=== PATIENT | female | born 1970 | race Caucasian/White ===

== ENCOUNTER 2022-11-27 04:12 | Emergency (ER) | payer MEDICAID, OTHER ==
[2022-11-27] MEDS ORDERED: KETOROLAC 15 MG/ML VIAL IVP STA (04:30)
[2022-11-27] MEDS ORDERED: SODIUM CHLORIDE 0.9% 1,000 ML IV STA (04:30)
[2022-11-27] MEDS ORDERED: ONDANSETRON 4 MG/2 ML VIAL IVP STA (04:30)
[2022-11-27 04:36] LABS: BILIRUBIN,URINE NEGATIVE (NEGATIVE); CLARITY,URINE CLEAR (CLEAR); GLUCOSE, URINE (UA) NEGATIVE (NEGATIVE); KETONES,URINE (UA) TRACE mg/dL (NEGATIVE); LEUKOCYTE ESTERASE, URINE NEGATIVE (NEGATIVE); NITRITE,URINE NEGATIVE (NEGATIVE); OCCULT BLOOD,URINE LARGE (NEGATIVE); PROTEIN,URINE 30 mg/dL (NEGATIVE); UROBILINOGEN,URINE 0.2 (NORMAL) E.U./dL (NORMAL)
[2022-11-27 04:42] LABS: BASOPHILS % (AUTO) 0.4 %; EOSINOPHILS # (AUTO) 0.1 10^3/uL (0.0-0.7); EOSINOPHILS % (AUTO) 0.4 %; HCT - HEMATOCRIT 48.3 % (37.0-47.0); HGB - HEMOGLOBIN 16.3 g/dL (12.0-16.0); LYMPHOCYTES # (AUTO) 1.3 10^3/uL (1.5-3.5); LYMPHOCYTES % (AUTO) 11.5 %; MEAN CORPUSCULAR HEMOGLOBIN 29.7 pg (27.0-31.0); MEAN CORPUSCULAR HGB CONC 33.7 g/dL (32.0-36.0); MEAN CORPUSCULAR VOLUME 88.1 fL (81.0-99.0); MEAN PLATELET VOLUME 8.5 fL (7.9-10.8); MONOCYTES # (AUTO) 0.4 10^3/uL (0.0-1.0); MONOCYTES % (AUTO) 3.6 %; NEUTROPHILS # (AUTO) 9.5 10^3/uL (1.5-6.6); NEUTROPHILS % (AUTO) 83.8 %; PLT - PLATELET COUNT 290 10^3/uL (130-450); RED BLOOD COUNT 5.48 10^6/uL (4.20-5.40); RED CELL DISTRIBUTION WIDTH 13.1 % (12.0-15.0); WHITE BLOOD COUNT 11.3 x10^3/uL (4.8-10.8)
[2022-11-27 04:44] LABS: BACTERIA,URINE Rare /HPF (None Seen); MUCUS,URINE Few Strands; RBC,URINE TNTC /HPF (0-5); SQUAMOUS EPITHELIAL CELL,UR FEW Squamous (<= Few); WBC,URINE 0-3 /HPF (0-5)
[2022-11-27 04:55] LABS: ALBUMIN 4.1 g/dL (3.2-5.5); ALBUMIN/GLOBULIN RATIO 1.1 (1.0-2.2); BILIRUBIN,TOTAL 0.5 mg/dL (0.2-1.0); CALCIUM 9.6 mg/dL (8.5-10.3); CREATININE 0.6 mg/dL (0.4-1.0); POTASSIUM 3.2 mmol/L (3.5-5.0); TOTAL PROTEIN 7.7 g/dL (6.7-8.2)
[2022-11-27] MEDS ORDERED: POTASSIUM CHLORIDE 20 MEQ/15 ML UDC PO STA (05:51)
--- NOTE | 2022-11-27 05:51 | ED Physician Documentation ---
History of Present Illness - Stated complaint Stated Complaint: LOWER BACK PX - Chief complaint Chief Complaint: Abd Pain - History obtained from History obtained from: Patient - Additonal information Additional information: 52-year-old woman with history of kidney stones presents with Left flank, back, and lower abdominal pain starting overnight. Also with nausea. denies fever, diarrhea, urinary sx. 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 : Kidney stones - Past Surgical History Past Surgical History: No - Present Medications Home Medications: Ambulatory Orders Medication Instructions Recorded Confirmed Ketorolac [Toradol] 10 mg PO Q6H PRN #20 tablet 11/27/22 Ondansetron Odt [Zofran Odt] 4 mg TL Q6H PRN #10 tablet 11/27/22 - Allergies Allergies/Adverse Reactions: Allergies Allergy/AdvReac Type Severity Reaction Status Date / Time codeine Allergy Unknown Verified 11/27/22 04:29 - Social History Does the pt smoke?: Yes Smoking Status: Current every day smoker Does the pt drink ETOH?: No Does the pt have substance abuse?: Yes - Immunizations Immunizations are current?: Yes - POLST Patient has POLST: No PD ED PE NORMAL - Vitals Vital signs reviewed: Yes - General General: Alert and oriented X 3, Other (uncomfortable appearing) - HEENT HEENT: Atraumatic, PERRL, EOMI - Neck Neck: Supple, no meningeal sign - Cardiac Cardiac: RRR - Respiratory Respiratory: No respiratory distress, Clear bilaterally - Abdomen Abdomen: Non tender, Non distended, Other (discomfort LLQ) - Back Back: Other (L CVA discomfort with palpation) - Derm Derm: Normal color, Warm and dry Results - Vitals Vitals: Vital Signs - 24 hr 11/27/22 11/27/22 11/27/22 04:27 04:30 06:00 Temperature 36.0 C L Heart Rate 84 77 71 Respiratory 17 16 16 Rate Blood Pressure 145/70 H 145/70 H 138/68 H O2 Saturation 99 99 99 Oxygen O2 Source Room air - Labs Labs: Laboratory Tests 11/27/22 11/27/22 11/27/22 04:24 04:31 04:31 WBC 11.3 H RBC 5.48 H Hgb 16.3 H Hct 48.3 H MCV 88.1 MCH 29.7 MCHC 33.7 RDW 13.1 Plt Count 290 MPV 8.5 Neut # (Auto) 9.5 H Lymph # (Auto) 1.3 L Lyman # (Auto) 0.4 Eos # (Auto) 0.1 Baso # (Auto) 0.0 Absolute Nucleated RBC 0.00 Nucleated RBC % 0.0 Sodium 142 Potassium 3.2 L Chloride 104 Carbon Dioxide 28 Anion Gap 10.0 BUN 17 Creatinine 0.6 Estimated GFR (MDRD) 105 Glucose 125 H Calcium 9.6 Total Bilirubin 0.5 AST 23 ALT 23 Alkaline Phosphatase 66 Total Protein 7.7 Albumin 4.1 Globulin 3.6 Albumin/Globulin Ratio 1.1 Lipase 29 Urine Color YELLOW Urine Clarity CLEAR Urine pH 5.0 Ur Specific Randolph >=1.030 H Urine Protein 30 H Urine Glucose (UA) NEGATIVE Urine Ketones TRACE Urine Occult Blood LARGE H Urine Nitrite NEGATIVE Urine Bilirubin NEGATIVE Urine Urobilinogen 0.2 (NORMAL) Ur Leukocyte Esterase NEGATIVE Urine RBC TNTC H Urine WBC 0-3 Ur Squamous Epith Cells FEW Squamous Urine Bacteria Rare Urine Mucus Few Strands Ur Microscopic Review INDICATED Urine Culture Comments NOT INDICATED PD Medical Decision Making - ED course ED course: 52-year-old woman presents with recurrent renal stones. Lab work including CBC, abdominal panel, urinalysis ordered and unremarkable with the exception of mild hypokalemia. Supplemental potassium provided. CT abdomen and pelvis performed with independent interpretation by myself and outside radiologist showed moderate hydronephrosis and left UPJ 5 mm stone which is likely about to pass. Patient had significant improvement in the emergency department with IV 50 mg Toradol and 1 L of IV fluids as well as with Zofran. I suspect she has already passed the stone into her bladder. Discussed with the patient incidental finding of gallstones on CT and provided routine referral to surgery clinic for this. Plan to follow-up with urology regarding her kidney stones. Return precautions given. Departure - Departure Disposition: 01 Home, Self Care Clinical Impression: Kidney stones, Gallstones Condition: Stable Instructions: Kidney Stones, Gallstones Dc Follow-Up: Tammy Torres MD [Physician No Access] - Alison Marin MD [Provider Admit Priv/Credential] - Prescriptions: Ketorolac [Toradol] 10 mg PO Q6H PRN #20 tablet PRN Reason: Pain Ondansetron Odt [Zofran Odt] 4 mg TL Q6H PRN #10 tablet PRN Reason: Nausea / Vomiting Comments: You were seen in the emergency department for kidney stones. You also were found incidentally to have gallstones on your CT. Please follow-up with urology and surgery clinic. Return to the emergency department for new or worsening symptoms or other concerns. A prescription was sent electronically for Toradol and Zofran to [facility] in [place]. Discharge Date/Time: 11/27/22 06:00
[2022-11-27 06:02] VITALS: BP 138/68
--- NOTE | 2022-11-27 10:46 | CT Report ---
PROCEDURE: ABDOMEN/PELVIS WO INDICATIONS: kid stones TECHNIQUE: Noncontrast 5 mm thick sections acquired from the diaphragms to the symphysis. 5 mm coronal and sagi ttal reformats were then performed. For radiation dose reduction, the following was used: automated exposure control, adjustment of mA and/or kV according to patient size. COMPARISON: CT abdomen and pelvis without, 08/22/2015. FINDINGS: Image quality: Excellent. Lung bases and heart: Multiple cysts or emphysematous bullae in lower lobes bilaterally. Liver: No solid mass. Gallbladder and biliary tree: There are small gallstones. Biliary ducts are normal. Spleen: No splenomegaly. Pancreas: No pancreatic ductal dilation. Adrenals: No adrenal nodule. Kidneys and ureters: There is a 4 mm left UVJ stone with CT density 214 Hounsfield units. There is mi ld left hydronephrosis. Multiple nonobstructive right renal calculi present measuring 1-5 mm. No right hydronephrosis. No rig ht ureter stones or hydroureter. Bowel and peritoneum: No bowel distension. No pathologic free fluid. Lymph nodes: No central or retroperitoneal adenopathy. Vessels: No infrarenal aortic aneurysm. PELVIS Reproductive organs: Unremarkable. Bladder: No abnormal wall thickening, accounting for underdistension. Pelvic lymph nodes: No pelvic adenopathy by size criteria. Bones: No aggressive osseous abnormality. Mild scoliosis. Severe degenerative changes in lumbar spine . Other: No significant ventral or inguinal hernia. IMPRESSION: 1. There is a 4 mm stone at the left UVJ causing mild left hydronephrosis. 2. Multiple nonobstructive right renal calculi. 3. Cystic changes or emphysematous bullae in lower lobes bilaterally. 4. Cholelithiasis. No significant discrepancy with the preliminary interpretation. Reviewed by: Krystle Trotter MD on 11/27/2022 10:44 AM PDT Approved by: Krystle Trotter MD on 11/27/2022 10:44 AM PDT Station ID: [id number]
== END 2022-11-27 06:00 | disposition home or self-care (01) ==
LOC: ED 04:12
DX: N13.2 Hydronephrosis with renal and ureteral calculous obstruction (principal); Z87.442 Personal history of urinary calculi; K80.20 Calculus of gallbladder without cholecystitis without obstruction; F17.200 Nicotine dependence, unspecified, uncomplicated
CPT/HCPCS: 36415; 74176; 80053; 81001; 83690; 85025; 96374; 99283; 99284; A9270; 81003; 87086

== ENCOUNTER 2023-10-28 15:02 | Outpatient (CLI) | payer MEDICAID ==
--- NOTE | 2023-10-29 09:33 | Mammography Report ---
BILATERAL DIGITAL SCREENING MAMMOGRAM 3D/2D: 10/28/2023 CLINICAL: Routine screening. Comparison is made to exam dated: 08/23/2015 mammogram - [facility]. There are scattered areas of fibroglandular density in both breasts (category b / 25%-50% glandular t issue). No significant masses, calcifications, or other findings are seen in either breast. There has been no significant interval change. IMPRESSION: NEGATIVE There is no mammographic evidence of malignancy. A 1 year screening mammogram is recommended. Based on the Tyrer Cuzick model (a risk assessment model) the patient's lifetime risk is 5.8% and her 10 year risk is 1.5%. According to the ACR, ACS, and NCCN guidelines, an annual breast MRI exam makayla g with mammogram is recommended if the patient's lifetime risk is 20% or greater. This exam was interpreted at Station ID: [id number]. NOTE: For mammograms, a report in lay terms will be sent to the patient. Approximately 15% of breast malignancies will not be visualized mammographically. In the management of a palpable breast mass, a negative mammogram must not discourage biopsy of a clinically suspicious lesion. Electronically Signed By: Chang horne/frannie:10/29/2023 08:05:04 letter sent: No_Letter ACR BI-RADS Category 1: Negative 3341F PARENCHYMAL PATTERN: (A) - The breast(s) demonstrate(s) scattered fibroglandular densities. BI-RADS CATEGORY: (1) - 1 RECOMMENDATION: (ANNUAL) - Recommend routine annual screening mammography. [id number] 1 year screening LATERALITY: (B)
== END 2023-10-28 15:03 | disposition home or self-care (01) ==
LOC: DI 15:02
PROVIDERS: ATTEND Physician Assistant Medical
DX: Z12.31 Encounter for screening mammogram for malignant neoplasm of breast (principal); R92.323 Mammographic fibroglandular density, bilateral breasts

== ENCOUNTER 2023-10-28 15:38 | Outpatient (CLI) | payer MEDICAID ==
--- NOTE | 2023-10-28 17:01 | CT Report ---
PROCEDURE: Lung Cancer Screen INDICATIONS: SMOKER TECHNIQUE: A CT scan of the chest was performed. Intravenous contrast media was not administered. Images were re corded and evaluated at appropriate window settings. Reformats: axial MIP of the chest, coronal and s agittal. For radiation dose reduction, the following was used: automated exposure control, adjustment of mA and/or kV according to patient size. COMPARISON: CT of abdomen and pelvis dated 11/27/2022 FINDINGS: Image quality: Excellent. Prior cancer history: Unsure. Lungs and pleura: Multiple bullae are seen scattered in bilateral mid to lower lung castro. No pleura l effusions. No pneumothorax. 2 mm solid nodule in lateral right middle lobe is seen series 4 image 65. 2.5 mm solid nodule is seen in lateral aspect of right upper lobe series 4 image 43 2 mm nodule is also seen in lateral right upper lobe series 4 image 37. Mediastinum: Heart size is normal. No pericardial effusion. No large vessel abnormality. No mediastin al adenopathy by size criteria. Chest wall and lower neck: There is suggestion of hypodense nodule involving enlarged right thyroid l obe measures up to 1.2 cm in size series 2 image 16.. No axillary or supraclavicular adenopathy by si ze. Bones: No aggressive osseous abnormality. Upper Abdomen: Unremarkable. IMPRESSION: Lung RAD: 2 - Benign. Recommendation: Continue annual screening in 12 Months with LDCT Non-Lung Significant Findings: Asymmetrically enlarged right thyroid lobe with hypodense right thyroi d lobe nodules as described above. Finding may represent nodular goiter. Consider ultrasound of thyro id gland for further evaluation of this region. Reviewed by: Brown Bernstein MD on 10/28/2023 5:00 PM PDT Approved by: Brown Bernstein MD on 10/28/2023 5:00 PM PDT Station ID: [id number]
== END 2023-10-28 15:39 | disposition home or self-care (01) ==
LOC: DI 15:38
PROVIDERS: ATTEND Physician Assistant Medical
DX: Z12.2 Encounter for screening for malignant neoplasm of respiratory organs (principal); E04.2 Nontoxic multinodular goiter; F17.200 Nicotine dependence, unspecified, uncomplicated

== ENCOUNTER 2023-11-08 15:01 | Outpatient (CLI) | payer MEDICAID ==
--- NOTE | 2023-11-08 16:43 | Ultrasound Report ---
PROCEDURE: Soft Tissue Head or Neck INDICATIONS: THYROID NODULE TECHNIQUE: Real-time scanning was performed of the thyroid gland, with image documentation. COMPARISON: None FINDINGS: Right: Thyroid lobe measures 5.5 x 2.7 x 2.6 cm. Left: Thyroid lobe measures 5.5 x 1.9 x 1.3 cm Isthmus: 0.2 cm thick. Echotexture: Heterogeneous. Subcentimeter thyroid nodules do not require dedicated follow-up. On the right, there is a dominant nodule measuring 4.3 x 2.3 x 3.2 cm. It is predominantly solid. (Th ere are questionable spongiform spaces). Echotexture is isoechoic. TR 3. On the left, there is a part solid cystic nodule with hypoechoic appearance and macrocalcifications. This measures 1.9 x 1.2 x 1.3 cm. TR 4. IMPRESSION: Both thyroid nodules above meet criteria for sampling based on TI RADS criteria. ACR TI-RADS definitions and recommendations: TI-RADS 1 (benign): 0 points. FNA not needed. TI-RADS 2 (not suspicious): 2 points. FNA not needed. TI-RADS 3 (mildly suspicious): 3 points. "FNA if 2.5 cm or larger, follow up if 1.5 cm or larger (at 1, 3, and 5 years). TI-RADS 4 (moderately suspicious): 4-6 points. "FNA if 1.5 cm or larger, follow up if 1 cm or larger (at 1, 2, 3, and 5 years). TI-RADS 5 (highly suspicious): 7 points or more. "FNA if 1 cm or larger, follow up if 0.5 cm or larger (every year for 5 years). Reviewed by: Chang Farias MD on 11/08/2023 4:42 PM PDT Approved by: Chang Farias MD on 11/08/2023 4:42 PM PDT Station ID: [id number]
== END 2023-11-08 15:02 | disposition home or self-care (01) ==
LOC: DI 15:01
PROVIDERS: ATTEND Physician Assistant Medical
DX: E04.2 Nontoxic multinodular goiter (principal)

== ENCOUNTER 2023-11-18 18:22 | Outpatient (CLI) | payer MEDICAID ==
--- NOTE | 2023-11-19 13:05 | Ultrasound Report ---
PROCEDURE: Pelvic w/Transvaginal INDICATIONS: PELVIC PAIN TECHNIQUE: Real-time scanning was performed of the pelvic organs, with image documentation. Additional endovagi nal scanning was necessary due to incomplete visualization of the adnexal and endometrial structures by transabdominal scanning. COMPARISON: None. FINDINGS: Uterus: 8.8 x 4 x 4.4 cm. Endometrium measures 5 mm. This is at the upper limit of normal. Heterogene ous echotexture. Ovaries: Left ovary is not seen. The right ovary is small at under 1 cc. During examination of the left adnexa, there was focal tenderness. Other: No pathologic free fluid. IMPRESSION: Examination of the left adnexa during endovaginal imaging resulted in focal tenderness. The left ovar y was not seen. The right ovary is small at under 1 cc. Endometrium is at the upper limit of normal at 5 mm Reviewed by: Chang Farias MD on 11/19/2023 1:04 PM PDT Approved by: Chang Farias MD on 11/19/2023 1:04 PM PDT Station ID: [id number]
== END 2023-11-18 18:23 | disposition home or self-care (01) ==
LOC: DI 18:22
PROVIDERS: ATTEND Physician Assistant Medical
DX: R10.2 Pelvic and perineal pain (principal)

== ENCOUNTER 2023-12-04 13:52 | Outpatient (CLI) | payer MEDICAID ==
[2023-12-04] MEDS ORDERED: LIDOCAINE-MPF 1% 5 ML VIAL ONE (14:09)
[2023-12-04] MEDS: LIDOCAINE-MPF 1% 5 ML VIAL TD ONE (16:21)
--- NOTE | 2023-12-04 18:41 | Ultrasound Report ---
PROCEDURE: FNA Bx w/US Gdn 1st Les INDICATIONS: THYROID NODULE TECHNIQUE: The indications, alternatives, benefits, risks, and complications of the procedure were explained to the patient. Written informed consent was obtained and placed in the chart. The area of interest wa s examined sonographically and a site was chosen for ultrasound guided percutaneous sampling. The sk in was prepared and draped in the usual fashion, and anesthetized with 1% lidocaine infiltrated from the skin down to the lesion. Multiple passes were then performed, with contents emptied into an appr [facility] pathology specimen container. A bandage was applied to the area of access at completion of t he study. COMPARISON: Ultrasound from 11/08/2023. FINDINGS: Location(s) of lesion(s) sampled: Right mid thyroid lobe [place]: 25 gauge hypodermic needles. Number of passes: 6 Medications: 1% lidocaine for local anaesthesia. Complications: None. IMPRESSION: Successful ultrasound-guided right mid thyroid nodule fine needle aspiration, with cytology results p ending. Reviewed by: Aakash Dobson MD on 12/04/2023 6:40 PM PDT Approved by: Aakash Dobson MD on 12/04/2023 6:40 PM PDT Station ID: [id number]
--- NOTE | 2023-12-04 18:42 | Ultrasound Report ---
PROCEDURE: FNA Bx w/US Gnd Ea Addl INDICATIONS: THYROID NODULE TECHNIQUE: The indications, alternatives, benefits, risks, and complications of the procedure were explained to the patient. Written informed consent was obtained and placed in the chart. The area of interest wa s examined sonographically and a site was chosen for ultrasound guided percutaneous sampling. The sk in was prepared and draped in the usual fashion, and anesthetized with 1% lidocaine infiltrated from the skin down to the lesion. Multiple passes were then performed, with contents emptied into an appr [facility] pathology specimen container. A bandage was applied to the area of access at completion of t he study. COMPARISON: 11/08/2023 FINDINGS: Location(s) of lesion(s) sampled: Left inferior thyroid [place]: 25 gauge hypodermic needles. Number of passes: 6 Medications: 1% lidocaine for local anaesthesia. Complications: None. IMPRESSION: Successful ultrasound-guided left inferior thyroid nodule fine needle aspiration, with cytology resul ts pending. Reviewed by: Aakash Dobson MD on 12/04/2023 6:41 PM PDT Approved by: Aakash Dobson MD on 12/04/2023 6:41 PM PDT Station ID: [id number]
== END 2023-12-04 13:53 | disposition home or self-care (01) ==
LOC: DI 13:52
PROVIDERS: ATTEND Physician Assistant Medical
DX: E04.2 Nontoxic multinodular goiter (principal)
CPT/HCPCS: 10005; 10006

== ENCOUNTER 2024-02-22 08:10 | Emergency (ER) | payer MEDICAID ==
--- NOTE | 2024-02-22 08:25 | ED Physician Documentation ---
PD HPI HEENT - Stated complaint Stated Complaint: LT SIDE FACE SWOLLEN/PX - Chief complaint Chief Complaint: Wound - History obtained from History obtained from: Patient - History of Present Illness Timing - onset: How many days ago (4) Timing - duration: Days (4) Timing - details: Still present (has increased in pain and area considerably and had been told to resee care if not improving, so here she is.) Location: Other (initially left eyebrow area with local redness and pain. Went to Walk In and was Rx Keflex for infection.) Improves: No: Medication, Heat Associated symptoms: Fever, Unable to swallow, Swollen nodes. 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: Tubal ligation HEENT: Other - Present Medications Home Medications: Ambulatory Orders Medication Instructions Recorded Confirmed Doxycycline Hyclate 100 mg PO BID 7 Days #14 cap 02/22/24 Mupirocin 2% Oint [Bactroban 2% 1 applic TOP TID #15 gm 02/22/24 Oint] cephALEXin [Keflex] 500 mg PO Q6H 02/22/24 02/22/24 - Allergies Allergies/Adverse Reactions: Allergies Allergy/AdvReac Type Severity Reaction Status Date / Time codeine Allergy Unknown Verified 02/22/24 08:14 - Social History Does the pt smoke?: Yes Smoking Status: Current every day smoker Does the pt drink ETOH?: No Does the pt have substance abuse?: Yes Substance Use and Type: Marijuana - Immunizations Immunizations are current?: Yes - POLST Patient has POLST: No PD ED PE NORMAL - Vitals Vital signs reviewed: Yes - General General: Alert and oriented X 3, Well developed/nourished, Other - HEENT HEENT: PERRL, EOMI, Other (there is focal tenderness with partial thikness skin breadown after stepping down on nail in board. redness without fluctuance nor abscess feelable.) - Neck Neck: Supple, no meningeal sign, Other (mild anteriorly to left) Results - Vitals Vitals: Vital Signs - 24 hr 02/22/24 02/22/24 08:15 09:42 Temperature 36.4 C L 36.5 C Heart Rate 82 80 Respiratory 16 16 Rate Blood Pressure 147/89 H 148/80 H O2 Saturation 99 99 Oxygen O2 Source Room air PD Medical Decision Making - ED course Complexity details: reviewed results (small superficial abscess with parcedd at aasdzx ), considered differential (Small area of tenderness with inflammation and redness and mild skin erosion in the left eyebrow area that is extended to redness and swelling around the upper eyelid and periorbital. Was prescribed Keflex without any improvement in his worsening. I would have/will now provide MRSA coverage.), d/w patient ED course: Has local superficial abscess without fluid collection above left eyebrow. Very tender. Redness around that and extendsl to the lft There is tender celluliitic changes left eyegrow, cheeck, with redness and warmth. No fluctuance at eyebrow spot but tender with swelling locally. Consider more likley staph aureus. Will treat with doxy and mupirocin. Sdd pain meds. Departure - Departure Disposition: 01 Home, Self Care Clinical Impression: Cellulitis due to Staphylococcus aureus Condition: Stable Record reviewed to determine appropriate education?: Yes Instructions: ED Staph Infec Abx Tx Only Prescriptions: Mupirocin 2% Oint [Bactroban 2% Oint] 1 applic TOP TID #15 gm Doxycycline Hyclate 100 mg PO BID 7 Days #14 cap Comments: Given the progression of this despite the cephalexin antibiotic, it would seem most likely a Staph aureus infection resistant to that. Will change antibiotics both orally and add a topical and that should allow for improvement of this over the next few days. Continue with the ibuprofen. Add Tylenol if needed. I sent a prescription to the [facility] pharmacy here in [place]. Forms: PCP List Discharge Date/Time: 02/22/24 09:42
[2024-02-22 08:40] VITALS: O2SAT 99
[2024-02-22] MEDS: MUPIROCIN 2% OINT 1 GM TOP STA (09:39)
[2024-02-22] MEDS: DOXYCYCLINE 100 MG TABLET PO STA (09:40)
[2024-02-22 09:45] VITALS: BP 148/80
== END 2024-02-22 09:42 | disposition home or self-care (01) ==
LOC: ED 08:10
DX: L03.211 Cellulitis of face (principal); B95.61 Methicillin susceptible Staphylococcus aureus infection as the cause of diseases classified elsewhere; F17.200 Nicotine dependence, unspecified, uncomplicated
CPT/HCPCS: 99283; A9270